=== PATIENT | female | born 1970 | race Two or more races ===

== ENCOUNTER 2016-05-07 07:22 | Emergency (ER) | payer SELFPAY ==
[2016-05-07 07:37] VITALS: BP 136/73
[2016-05-07] MEDS ORDERED: ACET-704 PO (08:10)
[2016-05-07] MEDS ORDERED: METH-37 PO (08:10)
--- NOTE | 2016-05-07 08:11 | PHYS DOC ---
Past Medical History Past Medical History: Asthma, Seizure Past Surgical History: No Surgical History Additional Information: 02/08 ppd Alcohol Use: None Drug Use: Benzodiazepine, Cocaine, Methamphetamine Adult General Chief Complaint Chief Complaint: Neck Pain [facility] HPI Patient is a 46 year old female who presents with neck pain for 2 weeks. She denies any injury. She awoke with pain. She denies weakness or numbness. She has a history of seizures but denies seizure in the last year. She no longer takes any seizure medications. She does not have a PCP. Review of Systems Review of Systems Constitutional: Denies fever or chills. [] Eyes: Denies change in visual acuity, redness, or eye pain. [] HENT: Denies ear pain, nasal congestion or sore throat. [] Respiratory: Denies cough or shortness of breath. [] Cardiovascular: Denies chest pain, palpitations or edema. [] GI: Denies abdominal pain, nausea, vomiting, bloody stools or diarrhea. [] : Denies dysuria, hematuria or urinary frequency. [] Musculoskeletal: Denies back pain or joint pain. Reports neck pain. Integument: Denies rash or skin lesions. [] Neurologic: Denies headache, focal weakness or sensory changes. [] Endocrine: Denies polyuria or polydipsia. [] Psych: Denies anxiety or depression. [] All systems reviewed and negative unless otherwise stated in the HPI. Allergies Allergies Allergies Coded Allergies Type Severity Reaction Last Updated Verified carbamazepine Allergy Severe SEIZURES 11/13/14 Yes divalproex sodium Allergy Severe 11/13/14 Yes phenytoin Allergy Intermediate 11/13/14 Yes Physical Exam Physical Exam Constitutional: Well developed, well nourished, no acute distress, non-toxic appearance. [] HENT: Normocephalic, atraumatic, oropharynx moist. [] Eyes: PERRLA, EOMI, conjunctiva normal, no discharge. [] Neck: Normal range of motion, right paraspinal and anterior muscle tenderness, supple, no stridor. [] Skin: Warm, dry, no erythema, no rash. [] Back: No midline tenderness, no CVA tenderness. [] Extremities: No tenderness, ROM intact, no edema. Distal pulses equal bilaterally. Less than 2 second capillary refill in the fingers. Light touch sensation intact in the fingers. [employer] strength equal bilaterally. Neurologic: Alert and oriented X 3, normal motor function, normal sensory function, no focal deficits noted. [] Psychologic: Affect normal, judgement normal, mood normal. [] Current Patient Data Vital Signs Vital Signs Date Time Temp Pulse Resp B/P Pulse Ox O2 Delivery O2 Flow Rate FiO2 05/07/16 07:37 98.1 120 18 99 Room Air 98.1 EKG EKG [] Radiology/Procedures Radiology/Procedures [] Course & Med Decision Making Course & Med Decision Making Pertinent Labs and Imaging studies reviewed. (See chart for details) [] Dragon Disclaimer Dragon Disclaimer This electronic medical record was generated, in whole or in part, using a voice recognition dictation system. Departure Departure Impression: Primary Impression: Neck muscle spasm Disposition: HOME, SELF-CARE Condition: STABLE Referrals: MEMO GUTIERREZ MD Patient Instructions: Torticollis, Acute Additional Instructions: You were seen for neck pain caused by tight muscles. Please take the prescribed medications as directed. Do not drive or operate heavy machinery while taking these medications. To help with your neck pain, apply heat and practice gentle stretching and massage. Please follow up with a primary care provider if your pain continues. Return to the emergency department if you have any new or concerning symptoms. Scripts Methocarbamol (Robaxin)500 Mg [id number] Mg PO QID #20 TAB Prov:PEDRO MCCALLUM 05/07/16 Acetaminophen With Codeine (Tylenol With Codeine #3 Tablet)1 Each Tablet1 Tab PO PRN Q6HRS PRN PAIN #20 TAB Prov:PEDRO MCCALLUM 05/07/16 PEDRO MCCALLUM May 07, 2016 08:11
== END 2016-05-07 08:21 | disposition home or self-care (01) ==
LOC: ER 07:22
DX: M62.838 Other muscle spasm (principal); M54.2 Cervicalgia; J45.909 Unspecified asthma, uncomplicated; F17.200 Nicotine dependence, unspecified, uncomplicated; F15.10 Other stimulant abuse, uncomplicated; F14.10 Cocaine abuse, uncomplicated; F19.10 Other psychoactive substance abuse, uncomplicated; Z88.8 Allergy status to other drugs, medicaments and biological substances
CPT/HCPCS: 99283